=== PATIENT | male | born 1980 | race Hispanic/Latino ===

== ENCOUNTER → 2022-02-08 | Day surgery (SDC) | payer OTHER ==
[~2022-02-08] MED LIST: ATROPINE SULFATE 1 MG/ML VIAL ONE; BUPIVACAINE HCL 0.25% 10ML MPF VIAL INJ ONE; DEXAMETHASONE SOD PHOS INJ 4 MG/ML SDV ONE; FENTANYL CITRATE/PF 100MCG/2 ML INJ ONE; KETOROLAC TROMETHAMINE 30 MG/ML VIAL ONE; LIDOCAINE HCL 2% LOCAL INJ 5 ML SDV VIAL INJ ONE; MIDAZOLAM HCL 2 MG/2 ML VIAL ONE; MOTRIN200 MG PO; NEOSTIGMINE 1 MG/ML 10ML VIAL ONE; ONDANSETRON HCL INJ 2MG/ML 2ML 2 MG/ML VIAL ONE; POVIDONE IODINE 0.05% 0.05 % ML PO ONE; PROPOFOL IV EMULSION 10 MG/ML 20 ML VIAL ONE; ROCURONIUM BROMIDE 10 MG/ML 5ML VIAL IV ONE; SEVOFLURANE INHAL SOLN 250 ML PEN BTL ONE; Vancomycin IV 500 MG ONE
[2022-02-08 15:00] VITALS: BP 124/81
== END | disposition home or self-care (01) ==
LOC: OR 07:26 → EDBD 13:30
PROVIDERS: ATTEND Orthopaedic Surgery
DX: S86.021A Laceration of right Achilles tendon, initial encounter (principal); X58.XXXA Exposure to other specified factors, initial encounter; Y93.66 Activity, soccer; Y99.8 Other external cause status; Z01.812 Encounter for preprocedural laboratory examination; Z20.822 Contact with and (suspected) exposure to COVID-19
CPT/HCPCS: 0223U; 27650; 36415; C1713 ×2; J0461; J0690; J1100; J1885; J2001; J2250; J2405; J2704; J2710; J3010; J3370